=== PATIENT | male | born 1965 | race Caucasian/White ===

== ENCOUNTER 2018-10-25 12:00 | Inpatient (IN) | payer SELFPAY ==
[~2018-10-25] VITALS: Ht 162.6 cm; Wt 65.3 kg
--- NOTE | 2018-10-25 12:08 | NUR ---
MACK C/O ALTERED MENTAL STATUS, FOUND IN THE STREET WONDERING. PATIENT A/OX1-2, ITALIAN SPEAKING, EMT TALKED TO PATIENT IN ITALIAN. PATIENT PLACED ON THE MONITOR. IV LINE ON RFA G18. DR. AUGUSTIN AT BEDSIDE FOR EVAL.
--- NOTE | 2018-10-25 12:20 | NUR ---
PATIENT GIVEN URINAL
[2018-10-25 12:29] LABS: BASOPHILS % (AUTO) 0.5 % (0.0-2.0); EOSINOPHILS % (AUTO) 0.1 % (0.0-6.0); HEMATOCRIT 36 % (39-51); HEMOGLOBIN 11.8 g/dL (13.5-17.5); LYMPHOCYTES # (AUTO) 0.7 /CMM (0.8-4.8); MEAN CORPUSCULAR HGB CONC 33 g/dl (31.0-36.0); MEAN CORPUSCULAR VOLUME 86 fL (80-96); MONOCYTES # (AUTO) 0.7 /CMM (0.1-1.30); MONOCYTES % (AUTO) 6.6 % (2.0-12.0); NEUTROPHILS # (AUTO) 8.8 /CMM (1.8-8.9); NEUTROPHILS % (AUTO) 85.8 % (43.0-81.0); PLATELET COUNT (AUTO) 189 /CMM (150-450); RED BLOOD CELL COUNT(AUTO) 4.18 MIL/uL (4.5-6.0); WHITE BLOOD COUNT (AUTO) 10.2 K/uL (4.3-11.0)
[2018-10-25] MEDS ORDERED: IV NS 0.9% 1,000 ML BAG IV ONE (12:30)
[2018-10-25 12:37] LABS: CALCIUM, SERUM 9.6 mg/dL (8.5-10.1); CARBON DIOXIDE 22 mmol/L (21-32); CHLORIDE 105 mmol/L (98-107); CREATININE 1.4 mg/dL (0.6-1.3); GLUCOSE 136 mg/dL (74-106); POTASSIUM 3.5 mmol/L (3.5-5.1); SODIUM SERUM 141 mmol/L (136-145); UREA NITROGEN, BLOOD 16 mg/dL (7-18)
[2018-10-25 12:43] LABS: ALANINE AMINOTRANSFERASE 16 U/L (12-78); ALBUMIN 4.1 g/dL (3.4-5.0); ALKALINE PHOSPHATASE 82 U/L (46-116); ASPARTATE AMINOTRANSFERASE 14 U/L (15-37); BILIRUBIN,DIRECT 0.1 mg/dL (0.0-0.2); BILIRUBIN,TOTAL 0.5 mg/dL (0.2-1.0); TOTAL PROTEIN, SERUM 8.5 g/dL (6.4-8.2)
[2018-10-25] MEDS ORDERED: CEFTRIAXONE 1GM BAG (ER ONLY) 50 ML IV ONE (13:04)
--- NOTE | 2018-10-25 13:11 | NUR ---
PATIENT ATTEMPTING TO URINATE, URINAL GIVEN.
[2018-10-25] MEDS ORDERED: CEFTRIAXONE 1GM BAG (ER ONLY) 1 GM/50 ML PIGGYBACK IV ONE (13:30)
--- NOTE | 2018-10-25 13:53 | NUR ---
UA OBTAINED AND SENT TO LAB
[2018-10-25 14:08] LABS: APPEARANCE,URINE Clear (CLEAR); BILIRUBIN,URINE SMALL (NEGATIVE); BLOOD, URINE Negative Ery/uL (NEGATIVE); COLOR,URINE Yellow (YELLOW); KETONES,URINE Trace (NEGATIVE); LEUKOCYTE ESTERASE ,URINE Negative (NEGATIVE); NITRITE, URINE Negative (NEGATIVE); PROTEIN,URINE 30 mg/dl (NEGATIVE); UGLUCOSE Negative (NEGATIVE)
[2018-10-25 14:17] LABS: RBC,URINE 0-3 /HPF (0-2)
[2018-10-25 14:18] LABS: BACTERIA,URINE None seen /HPF (None Seen); HYALINE CASTS, URINE 0-2 /LPF (None Seen); SQUAMOUS EPITHELIAL CELL,UR Few /HPF (None Seen); WBC,URINE 0-3 /HPF (0-3)
--- NOTE | 2018-10-25 14:29 | NUR ---
ASSIGNED BED 325-2
--- NOTE | 2018-10-25 14:46 | NUR ---
REPORT GIVEN TO LIS MALAGON.
--- NOTE | 2018-10-25 15:50 | NUR ---
PATIENT TRANSFERRED TO ROOM 325 MS IN STABLE CONDITION.
--- NOTE | 2018-10-25 16:00 | NUR ---
RECEIVED PATIENT IN STABLE CONDITION , ON ROOM AIR. ROMANSH SPEAKING ONLY.PATIENT APPEARED TO BE CONFUSED. GATE UNSTEADY, ABLE TO WALK ONLY WITH ASSISTANCE. SKIN CHECKED: SKIN TEAR ON RIGHT ELBOW. PICTURE TAKEN AND PALCED IN THE CHART. PATIENT ORIENTED TO THE ROOM, SAFETY PRECAUTIONS IN PLACE. CALL LIGHT WITHIN REACH. IV LINE TO THE R FA #18 G. FLUSHED, INTACT AND PATENT. NO BELONGINGS EXCEPT CLOTHES. AWAITING FOR ADM. ORDERS.
[2018-10-25] MEDS ORDERED: Z GUARD REMEDY 2 OZ OINT TP PRN (16:30)
[2018-10-25] MEDS ORDERED: HYDROCODONE/APAP 5/325MG 1 EACH TABLET PO PRN (16:30)
[2018-10-25] MEDS ORDERED: ZOLPIDEM TARTRATE 5 MG TABLET PO PRN (16:30)
[2018-10-25] MEDS ORDERED: ONDANSETRON HCL/PF 4 MG/2 ML VIAL IVP PRN (16:30)
[2018-10-25] MEDS ORDERED: MAGNESIUM HYDROXIDE 30 ML UDC PO PRN (16:30)
[2018-10-25] MEDS ORDERED: ACETAMINOPHEN 325 MG TABLET PO PRN (16:30)
[2018-10-25 18:00] VITALS: BP 146/76
--- NOTE | 2018-10-25 19:00 | NUR ---
RN MS OPENING NOTES RECEIVED PATIENT IN BED AWAKE ALERT AND ORIENTED X2, [place] SPEAKING, DENIES ANY PAIN OR DISCOMFORT AT THIS TIME,RESPIRATIONS EVEN AND UNLABORED WITH EQUAL RISE AND FALL OF CHEST, URINAL AT BEDSIDE AND OFFERED, IV SITE TO RIGHT FA #18 G INTACT AND PATENT, NO REDNESS, NO INFILTRATION PRESENT, ORIENTED TO STAFF AND CALL LIGHT AND KEPT WITHIN REACH, SAFETY PRECAUTIONS IN PLACE, LOW BED AND LOCKED, BED ALARM IN PLACE, ALL NEEDS ATTENDED AT THIS TIME WILL CONTINUE TO MONITOR AND ATTEND TO NEEDS.
[2018-10-25] MEDS: IV NS 0.9% 1,000 ML IV PRN (19:38)
[2018-10-25 20:00] VITALS: BP 120/60
[2018-10-25 20:05] VITALS: BP 120/60
[2018-10-25 23:17] LABS: APPEARANCE,URINE CLEAR (CLEAR); BILIRUBIN,URINE NEGATIVE (NEGATIVE); BLOOD, URINE NEGATIVE Ery/uL (NEGATIVE); COLOR,URINE YELLOW (YELLOW); KETONES,URINE NEGATIVE (NEGATIVE); LEUKOCYTE ESTERASE ,URINE NEGATIVE (NEGATIVE); NITRITE, URINE NEGATIVE (NEGATIVE); PH,URINE 5.5 (5.0-8.0); PROTEIN,URINE NEGATIVE (NEGATIVE); UGLUCOSE NEGATIVE (NEGATIVE); UROBILINOGEN,URINE 0.2 EU/dL (0.2)
[2018-10-26] MEDS: IV NS 0.9% 1,000 ML IV PRN (05:18)
--- NOTE | 2018-10-26 06:43 | NUR ---
RN MS CLOSING NOTES PATIENT IN BED AWAKE ALERT AND ORIENTED X2, GERMAN SPEAKING, DENIES ANY PAIN OR DISCOMFORT AT THIS TIME,RESPIRATIONS EVEN AND UNLABORED WITH EQUAL RISE AND FALL OF CHEST, URINAL AT BEDSIDE PATIENT IS ABLE TO USE URINAL ON HIS OWN URINE FR[place]ICK/YELLOW CLEAR COLOR, IV SITE TO RIGHT FA #18 G INTACT AND PATENT, NO REDNESS, NO INFILTRATION PRESENT, CALL LIGHT KEPT WITHIN REACH, SAFETY PRECAUTIONS IN PLACE, LOW BED AND LOCKED, BED ALARM IN PLACE, ALL NEEDS ATTENDED AT THIS TIME WILL CONTINUE TO MONITOR AND ATTEND TO NEEDS AND ENDORSE TO NEXT SHIFT, PROVIDED PERINEAL CARE, TURNED AND REPOSITIONED SACRAL INTACT.HEELS OFFLOADED.
[2018-10-26 07:12] LABS: BASOPHILS % (AUTO) 0.7 % (0.0-2.0); EOSINOPHILS % (AUTO) 4.6 % (0.0-6.0); HEMATOCRIT 30 % (39-51); HEMOGLOBIN 9.8 g/dL (13.5-17.5); LYMPHOCYTES # (AUTO) 1.8 /CMM (0.8-4.8); MEAN CORPUSCULAR HGB CONC 33 g/dl (31.0-36.0); MEAN CORPUSCULAR VOLUME 85 fL (80-96); MONOCYTES # (AUTO) 0.6 /CMM (0.1-1.30); MONOCYTES % (AUTO) 11.9 % (2.0-12.0); NEUTROPHILS # (AUTO) 2.4 /CMM (1.8-8.9); NEUTROPHILS % (AUTO) 46.8 % (43.0-81.0); PLATELET COUNT (AUTO) 145 /CMM (150-450); RED BLOOD CELL COUNT(AUTO) 3.49 MIL/uL (4.5-6.0)
[2018-10-26 08:00] VITALS: BP 140/76
--- NOTE | 2018-10-26 08:00 | NUR ---
RN OPENING NOTES RECEIVED PT. PT STABLE RESTING IN BED. NO S/S OF RESP DISTRESS. NO C/O PAIN. SAFETY MEASURES IN PLACE, CALL LIGHT IN REACH. WILL CONT TO MONITOR.
--- NOTE | 2018-10-26 09:59 | NUR ---
WOUND CARE CONSULT: PT PRESENTS WITH SACRAL SCARRING AND RT ARM ABRASION, PRESENT ON ADMISSION. PT NOTED TO BE INCONTINENT OF LARGE AMOUNT OF URINE. RECOMMENDATIONS MADE FOR SKIN PROTECTION AND WOUND CARE. DISCUSSED WITH NURSING STAFF. WILL SEE PRN. SAUNDERS IN AGREEMENT WITH PLAN OF CARE. Addendum: 10/26/18 at 1001 by JOEY PINA WNDNU Amended: Links added.
[2018-10-26] MEDS: CEFTRIAXONE 1 G in IV D5W 50 ML IV SCH (12:38)
[2018-10-26 13:47] LABS: CALCIUM, SERUM 8.6 mg/dL (8.5-10.1); CREATININE 0.7 mg/dL (0.6-1.3); MAGNESIUM 1.9 mg/dL (1.8-2.4); PHOSPHORUS 3.6 mg/dL (2.5-4.9); POTASSIUM 3.8 mmol/L (3.5-5.1)
[2018-10-26 16:00] VITALS: BP 150/64
--- NOTE | 2018-10-26 18:54 | NUR ---
RN CLOSING NOTE PT IN BED RESTING. PT DISPLAY NO S/S OF WITHDRAWL THROUGHOUT SHIFT, HOWEVER IS NONCOMPLIANT WITH SAFETY PROTOCOL, CONTINUALLY GETTING OUT OF BED UNATTENDED. ALL PT NEEDS ANTICIPATED AND MET. SAFETY MEASURES IN PLACE, CALL LIGHT WITHIN REACH. WILL ENDORSE TO CANAL EQUIPMENT MECHANIC FOR LISANDRO.
[2018-10-26 19:43] VITALS: BP 169/71
--- NOTE | 2018-10-26 19:45 | NUR ---
MS RN NOTES RECEIVED ON BED A/O X1,ABLE TO STATE HIS NAME AND WHERE HE IS.SPEAK [place] ONLY.PER REPORT,HE PULLED OUT HIS IV LINE 4X,RECEIVED WITH NO SALINE LOCK.NEW IV LINE PLACE ON LEFT HAND SECURED WITH KERLIX.IV FLUIDS RE STARTED AT SAME RATE.FALL PRECAUTION OBSERVED.BED ON LOWEST POSITION AND LOCK.CALL LIGHT IN REACH,NEEDS ANTICIPATED.
[2018-10-26 20:00] VITALS: BP 169/71
[2018-10-26 21:30] VITALS: BP 148/56
[2018-10-26 21:38] VITALS: BP 148/56
--- NOTE | 2018-10-27 00:34 | NUR ---
MS RN NOTES CALM AND QUIETE ON BED THIS TIME,IVF IN PROGRESS.REPORT GIVEN TO GENO MALAGON FOR LISANDRO
--- NOTE | 2018-10-27 00:40 | NUR ---
RN Notes Received patient awake in bed, pulled out his peripheral IV line. Inserted new IV access on left forearm with good blood return and secured well. Patient is confused, constantly getting out of bed, reorient patient as needed. Safety measures and fall precaution in place. Kept comfortable and attended with call light with in reach. Will continue to monitor patient.
--- NOTE | 2018-10-27 06:16 | NUR ---
RN Notes Patient sleep on and off overnight, constant getting out of bed and pulling out his IV access. Vital signs stable, afebrile. Denies any pain and discomfort. Safety measures and fall precaution observed. All needs attended. Will endorse patient accordingly.
[2018-10-27 06:54] LABS: BASOPHILS % (AUTO) 0.5 % (0.0-2.0); EOSINOPHILS % (AUTO) 3.5 % (0.0-6.0); HEMATOCRIT 34 % (39-51); HEMOGLOBIN 11.1 g/dL (13.5-17.5); LYMPHOCYTES # (AUTO) 1.7 /CMM (0.8-4.8); LYMPHOCYTES % (AUTO) 29.7 % (20.0-44.0); MEAN CORPUSCULAR HGB CONC 33 g/dl (31.0-36.0); MEAN CORPUSCULAR VOLUME 86 fL (80-96); MONOCYTES # (AUTO) 0.6 /CMM (0.1-1.30); MONOCYTES % (AUTO) 11.1 % (2.0-12.0); NEUTROPHILS # (AUTO) 3.2 /CMM (1.8-8.9); NEUTROPHILS % (AUTO) 55.2 % (43.0-81.0); PLATELET COUNT (AUTO) 158 /CMM (150-450); RED BLOOD CELL COUNT(AUTO) 3.97 MIL/uL (4.5-6.0); WHITE BLOOD COUNT (AUTO) 5.8 K/uL (4.3-11.0)
[2018-10-27 07:03] LABS: CALCIUM, SERUM 8.8 mg/dL (8.5-10.1); CREATININE 0.7 mg/dL (0.6-1.3); MAGNESIUM 1.9 mg/dL (1.8-2.4); PHOSPHORUS 3.6 mg/dL (2.5-4.9); POTASSIUM 3.5 mmol/L (3.5-5.1)
--- NOTE | 2018-10-27 07:30 | NUR ---
RN MS NOTES PT AWAKE, SITTING IN BED, ALERT AND VERBALLY RESPONSIVE, WITH PERIODS OF CONFUSION, NOT IN DISTRESS, NO COMPLAINT OF PAIN, RESPIRATIONS NORMAL, CALL LIGHT WITHIN REACH, NEEDS ATTENDED.
[2018-10-27 08:00] VITALS: BP 172/78
[2018-10-27] MEDS: CEFTRIAXONE 1 G in IV D5W 50 ML IV SCH (12:00)
--- NOTE | 2018-10-27 12:00 | NUR ---
RN MS NOTES PT PULLED OUT HIS PERIPHERAL IV LINE, REFUSING TO BE REINSERTED RIGHT NOW, REFUSED IV ATB.
--- NOTE | 2018-10-27 12:33 | NUR ---
Social service consult requested by Dr. Hoff for ETOH abuse and possible homelessness. Pt. is a 62 year old male who was admitted to [facility] for altered mental status. Pt. is Hungarian speaking. ERIK and Elvie (racking machine operator) met with pt. bedside. Pt. was sitting in a chair bedside. Pt. appears very confused and is unable to provide meaningful information. ERIK asked pt. where does he live and if he knows the address. Pt. is confused thinks he is in [facility] and lives with his sister. ERIK asked pt's RN Briana to look into pt's belongings if there is an ID or address or any information that can be beneficial to locate pt's family.
--- NOTE | 2018-10-27 12:42 | NUR ---
RN MS NOTES PT AWAKE, ALERT AND VERBALLY RESPONSIVE, WITH PERIODS OF CONFUSION, ABLE TO STATE HIS NAME AND SISTER'S NAME, SAID HIS DATE OF IS 1965, WHEN ASKED HIS AGE, PT STATED 35, 45 YEARS OLD, PT HAS NO ID CARD, SAID HE LEFT IT IN A HOTEL.
--- NOTE | 2018-10-27 14:52 | NUR ---
ERIK contacted Missing Persons and spoke with Detective Coker to inquire if pt. has been reported missing. Per Detective Coker, pt. is not reported missing. However SW did informed Det. Coker, that pt's date of might be incorrect since pt. is confused and unable to provide an accurate .
--- NOTE | 2018-10-27 18:30 | NUR ---
RN MS NOTES PT AWAKE, ALERT, WITH PERIODS OF CONFUSION, WALKS ALONG THE HALLWAY IN SLOW STEADY GAIT, ABLE TO BE REDIRECTED, COMPLIANT AT THIS TIME, PM CARE DONE, ELECTRICAL ENGINEERING PROFESSOR ASSISTED PT TO SHOWER, WITH GOOD PO INTAKE, AWAITING DISCHARGE PLACEMENT PER PRODUCTION DIRECTOR AND REFERENCE TEST CLERK.
--- NOTE | 2018-10-27 19:15 | NUR ---
RN henoksurshahab opening notes Received Pt from morning nurse. Pt is alert and oriented X1. Pt is sitting comfortably in the chair watching TV. Respiration is clear and unlabored. No SOB. Pt denies any pain or discomfort at this time. No nausea or vomiting. Pt's gait is steady. Pt does not have IV sites at this time because Pt pulled out the IV earlier. Will try to insert new IV. Sitter at the bed side. Safety precautions is maintained. Bed at low position and call light is within reach. Will continue to monitor and assist needs.
[2018-10-27 20:00] VITALS: BP 126/70
--- NOTE | 2018-10-27 20:00 | NUR ---
RN medsurg notes Pending placement for Pt per Medical Office Assistant Instructor order.
--- NOTE | 2018-10-28 03:23 | NUR ---
RN medsurg notes Inserted new IV access on Right Forearm #22 G with good blood return and secured well.
[2018-10-28] MEDS: IV NS 0.9% 1,000 ML IV PRN (05:00)
--- NOTE | 2018-10-28 07:10 | NUR ---
RN medsurg closing notes Pt is alert and oriented X1. Pt is resting in bed comfortably with eyes closed. Awake easily. Respiration is clear. No SOB. No S/S of distress noted. IV sites is intact, patent and infusing well NS @ 100ml/hr. Sitter at the bed side. Safety precautions is maintained. All needs met. Bed at low position, bed locked, Bed side rails upX2 and call light is within reach. Will endorse to morning nurse for LISANDRO.
--- NOTE | 2018-10-28 07:38 | NUR ---
MS RN OPENING NOTES RECEIVED PATIENT AWAKE IN BED IN NO ACUTE SIGNS OF DISTRESS. HOB ELEVATED. SITTER AT BEDSIDE. A/O X1. WELSH SPEAKING. DENIES PAIN OR ANY DISCOMFORTS AT THIS TIME. SKIN WARM TO TOUCH. ON ROOM AIR, RESPIRATIONS EVEN AND UNLABORED. IV ACCESS ON RFA G#22 INTACT AND PATENT, IVF OF NS @ 100ML/HR INFUSING WELL, NO S/S OF INFILTRATIONS NOTED. SAFETY MEASURES IN PLACE. BED IN LOW LOCKED POSITION WITH SR UP X2. CALL LIGHT IN REACH. WILL CONTINUE TO MONITOR ACCORDINGLY.
[2018-10-28 08:00] VITALS: BP 123/68
[2018-10-28 16:00] VITALS: BP 130/62
--- NOTE | 2018-10-28 18:40 | NUR ---
MS RN CLOSING NOTES PATIENT IN BED AWAKE AND WATCHING TV. HOB ELEVATED. 1:1 SITTER AT BEDSIDE. A/O X2. CZECH SPEAKING AND NOTED EPISODE OF CONFUSION DURING THE DAY. ON ROOM AIR, RESPIRATIONS EVEN WITH NO SOB NOTED. PIV ON RFA G#22 INTACT AND PATENT, IVF OF NS @ 100ML/HR INFUSING WELL, NO S/S OF INFILTRATIONS NOTED. ALL NEEDS AND CARE PROVIDED WELL. SAFETY MEASURES KEPT IN PLACE. BED IN LOW LOCKED POSITION WITH SR UP X2. CALL LIGHT IN REACH. WILL ENDORSE TO POULTRY PROCESSOR NURSE FOR LISANDRO.
--- NOTE | 2018-10-28 19:30 | NUR ---
MS REGISTERED NURSES INITIAL NOTES RECEIVED REPORT FROM AM NURSE TEE AND SEEN PT IN BED AWAKE AND ALERT LYING IN BED QUIET AND CALMED ,WATCHING TV AT THIS TIME. NO SIGNS OF ANY ACUTE DISTRESS NOTED. HEPLOCK AT THIS TIME, PATENT AND INTACT. SITTER AT THE BEDSIDE FOR SAFETY. KEPT HIM WARM AND COMFORTABLE AT ALL TIMES. WILL CONTINUE MONITORING.
[2018-10-28 20:00] VITALS: BP 125/70
--- NOTE | 2018-10-29 | NUR ---
ms dawit notes pt sleeping comfortably in bed without any distress noted. IVF still infusing. kept him comfortable and safe at all times. sitter at the bedside for safety. will continue monitoring.
--- NOTE | 2018-10-29 02:29 | NUR ---
ms dawit notes remains asleep. per sitter he went to the restroom 2 x already . no agitation noted.
--- NOTE | 2018-10-29 06:47 | NUR ---
ms dental front office assistant closing notes pt awake and alert calmed at this time while watching tv, stable katty the night and slept well. No signs of any agitation noted. re-oriented pt as much as possible . steady ambulation and needs some assistance for his daily care. morning care done , kept him warm and comfortable at all times. place call light at reach. sitter at the bedside for safety. will endorse to am nurse for continuity of care.
--- NOTE | 2018-10-29 07:07 | NUR ---
MS RN OPENING NOTES PATIENT RECEIVED AWAKE IN BED IN NO ACUTE SIGNS OF DISTRESS. HOB ELEVATED. 1:1 SITTER AT BEDSIDE. A/O X2. PORTUGUESE SPEAKING, PT CALM AND QUIET, DENIES PAIN OR ANY DISCOMFORTS AT THIS TIME. SKIN WARM TO TOUCH. ON ROOM AIR, RESPIRATIONS EVEN AND UNLABORED. IV ACCESS ON RFA G#22 INTACT AND PATENT, IVF OF NS @ 100ML/HR INFUSING WELL, NO S/S OF INFILTRATIONS NOTED. SAFETY MEASURES IN PLACE. BED IN LOW LOCKED POSITION WITH SR UP X2. CALL LIGHT IN REACH. WILL CONTINUE TO MONITOR ACCORDINGLY.
[2018-10-29 08:00] VITALS: BP 128/67
[2018-10-29] MEDS: IV NS 0.9% 1,000 ML IV PRN (08:38)
--- NOTE | 2018-10-29 13:53 | NUR ---
ERIK was informed by case worker Kaia Agustin that pt. is accepted at [facility] and care located at [address] [place] [address], [place]. Pt. to be discharged via transportation provided by [facility]. ERIK informed pt's VESNA De L aCruz that Homeless patient waiver form has been placed in pt's chart and to have pt. sign upon discharge.
--- NOTE | 2018-10-29 15:40 | NUR ---
AQUATICS SPECIALIST NOTES PATIENT DISCHARGED TO [facility] & AT [address] IN [place], [place] IN STABLE CONDITION. A/O X2. WALLISIAN SPEAKING. CONFUSED AT TIMES AND FORGETFUL BUT COOPERATIVE AND FOLLOWS COMMANDS. PT EXPLAINED ABOUT HOMELESS WAIVER FORM WITH CONTAINER MAKER , PT VERBALIZED UNDERSTANDING AND SIGNED FORM. V/S TAKEN AND RECORDED. PHOTO OF SKIN ISSUES TAKEN AND FILED ON CHART. ALL BELONGINGS ACCOUNTED FOR. RFA IV ACCESS REMOVED WITH NO BLEEDING NOTED, PRESSURE GAUZE APPLIED. HEALTH TEACHINGS/DISCHARGE INSTRUCTIONS GIVEN TO PT WITH CONTAINER MAKER AND PT APPARENTLY VERBALIZED UNDERSTANDING. PT LEFT UNIT @1535 VIA WHEELCHAIR ACCOMPANIED BY [facility] [employer] [facility]. MD AND CHARGE NURSE AWARE OF DISCHARGE.
== END 2018-10-29 15:37 | disposition other institution (70) | DRG 682 ==
LOC: ER 12:03 → MED 15:09 → EDBD 15:09
PROVIDERS: ADMIT Nurse Practitioner Acute Care; ATTEND Student in an Organized Health Care Education/Training Program
DX: N17.0 Acute kidney failure with tubular necrosis (principal); G92 Toxic encephalopathy; E87.2 Acidosis; N18.9 Chronic kidney disease, unspecified; D63.8 Anemia in other chronic diseases classified elsewhere; Z98.1 Arthrodesis status
CPT/HCPCS: 36415; 70450-TC; 71045-TC; 80048-TC; 80061-TC; 80076-TC; 80305; 81000-TC; 83605-TC; 83735-TC; 84100-TC; 84484-TC; 85025-TC; 87040-TC; 87081-TC; 87086-TC; 97116-TC; 97530-TC; A6253; A6402; A6403; G0378; G0480; J0696; J7030; J7060